=== PATIENT | female | born 1950 | race Caucasian/White ===

== ENCOUNTER 2018-03-24 14:52 | Emergency (ER) | payer SELFPAY ==
[2018-03-24] MEDS ORDERED: ALBUTEROL 3 ML DEYVIAL IH ONE ×3 (15:02→15:53)
[2018-03-24] MEDS ORDERED: IPRATROPIUM/ALBUTEROL 3 ML DEYVIAL IH ONE (15:02)
--- NOTE | 2018-03-24 15:08 | EDPHY ---
H & P Time Seen by Provider: 03/24/18 15:02 HPI/ROS: CHIEF COMPLAINT: Trouble breathing and chest tightness HISTORY OF PRESENT ILLNESS: History of exercise-induced asthma her whole life but worse when she moved to [place] 5 years ago. Started as reflux and then goes up into her chest. This particular episode started about 4 days ago. She says it feels like her asthma and right now feels like there is something sitting on her chest and she has trouble catching her breath. She is here because she is worried that in the past if she lives ago to long and it gets worse she is out for couple of weeks. Not associated with hemoptysis, dry nonproductive cough. A little bit worse with exertion, not positional. REVIEW OF SYSTEMS: Eye: no change in vision ENT: no sore throat Cardiac: HPI Pulmonary: HPI Abdomen: no vomiting, diarrhea, abdominal pain Musculoskeletal: No leg swelling Skin: no rash Neuro: no headache Constitutional: no fever : no urinary symptoms A comprehensive 10 point review of systems is otherwise negative aside from elements mentioned in the history of present illness. PAST MEDICAL HISTORY: Asthma, and reflux. No history of coronary disease or venous thromboembolism. Social history: Not currently smoking. No recent travel or immobilization. General Appearance: Alert and conversant, cooperative. Eyes: No scleral icterus. ENT, Mouth: Normal mucous membranes. Respiratory: Speaks in full sentences, slight end-expiratory wheezes but generally lungs sound quiet. Cardiovascular: Regular rate and rhythm. Gastrointestinal: Abdomen is soft and non tender. Neurological: Alert, face symmetric, normal motor and sensory in extremities. Skin: Warm and dry, no rashes. Musculoskeletal: No peripheral edema. No calf tenderness. Psychiatric: Not agitated. Emergency Department course/MDM: DuoNeb, albuterol neb, EKG, chest x-ray and D-dimer. 1543: d-dimer and troponin negative, chest x-ray negative for pneumothorax or pneumonia. No evidence for CHF. Will treat with nebulizer treatments and steroids for reactive airway disease. 1552: Patient informed of test results, will keep treating for reactive airways disease, at this point I think ACS or venous thromboembolism is unlikely. 1605: Says she feels much better, speaking in full sentences, on exam is moving much more air now. She feels comfortable going home which I think is reasonable. She has a nebulizer at home and medication for it. Primary care referral given. Smoking Status: Former smoker Constitutional: Initial Vital Signs Temperature (C) 36.5 C 03/24/18 14:53 Heart Rate 84 03/24/18 14:53 Respiratory Rate 18 03/24/18 14:53 Blood Pressure 157/76 H 03/24/18 14:53 O2 Sat (%) 95 03/24/18 14:53 O2 Delivery Mode Room Air Allergies/Adverse Reactions: No Known Allergies Allergy (Unverified 03/24/18 14:56) Home Medications: Medication Instructions Recorded Advair Hfa 115-21 Mcg Inhaler 03/24/18 Ipratropium [Atrovent Neb (*)] 0.5 mg IH 03/24/18 predniSONE [prednisone 20mg (RX)] 40 mg PO DAILY 5 Days tab 03/24/18 Medical Decision Making - Diagnostics EKG Interpretation: 12-lead EKG interpreted by me; official reading is in trace master. My interpretation is sinus rhythm rate 63 no ischemic changes. Imaging Results: Imaging Impressions Chest X-Ray 03/24/18 15:17 Impression: Bronchitis. Imaging: I viewed and interpreted images myself Differential Diagnosis: Differential diagnosis considered for shortness of breath including but not limited to pulmonary infectious process, COPD, asthma, pulmonary embolus and congestive heart failure. - Data Points Laboratory Results: Laboratory Results 03/24/18 15:10 03/24/18 15:10 03/24/18 03/24/18 03/24/18 15:15 15:10 15:10 WBC RBC Hgb Hct MCV MCH MCHC RDW Plt Count MPV Neut % (Auto) Lymph % (Auto) [place] % (Auto) Eos % (Auto) Baso % (Auto) Nucleat RBC Rel Count Absolute Neuts (auto) Absolute Lymphs (auto) Absolute Monos (auto) Absolute Eos (auto) Absolute Basos (auto) Absolute Nucleated RBC Immature Gran % Immature Gran # D-Dimer 0.31 ug/mLFEU ug/mLFEU (0.00-0.50) Sodium 134 mEq/L L mEq/L (135-145) Potassium 4.5 mEq/L mEq/L (3.3-5.0) Chloride 103 mEq/L mEq/L (97-110) Carbon Dioxide 24 mEq/l mEq/l (22-31) Anion Gap 7 mEq/L L mEq/L (8-16) BUN 19 mg/dL mg/dL (7-23) Creatinine 0.9 mg/dL mg/dL (0.6-1.0) Estimated GFR > 60 Glucose 90 mg/dL mg/dL (70-100) Calcium 9.7 mg/dL mg/dL (8.5-10.4) POC Troponin I 0.00 ng/mL ng/mL (0.00-0.08) 03/24/18 15:10 WBC 8.34 10^3/uL 10^3/uL (3.80-9.50) RBC 4.92 10^6/uL 10^6/uL (4.18-5.33) Hgb 15.4 g/dL g/dL (12.6-16.3) Hct 46.0 % % (38.0-47.0) MCV 93.5 fL fL (81.5-99.8) MCH 31.3 pg pg (27.9-34.1) MCHC 33.5 g/dL g/dL (32.4-36.7) RDW 13.2 % % (11.5-15.2) Plt Count 251 10^3/uL 10^3/uL (150-400) MPV 9.8 fL fL (8.7-11.7) Neut % (Auto) 59.1 % % (39.3-74.2) Lymph % (Auto) 27.3 % % (15.0-45.0) [place] % (Auto) 9.8 % % (4.5-13.0) Eos % (Auto) 2.4 % % (0.6-7.6) Baso % (Auto) 1.3 % % (0.3-1.7) Nucleat RBC Rel Count 0.0 % % (0.0-0.2) Absolute Neuts (auto) 4.92 10^3/uL 10^3/uL (1.70-6.50) Absolute Lymphs (auto) 2.28 10^3/uL 10^3/uL (1.00-3.00) Absolute Monos (auto) 0.82 10^3/uL H 10^3/uL (0.30-0.80) Absolute Eos (auto) 0.20 10^3/uL 10^3/uL (0.03-0.40) Absolute Basos (auto) 0.11 10^3/uL H 10^3/uL (0.02-0.10) Absolute Nucleated RBC 0.00 10^3/uL 10^3/uL (0-0.01) Immature Gran % 0.1 % % (0.0-1.1) Immature Gran # 0.01 10^3/uL 10^3/uL (0.00-0.10) D-Dimer Sodium Potassium Chloride Carbon Dioxide Anion Gap BUN Creatinine Estimated GFR Glucose Calcium POC Troponin I Medications Given: Discontinued Medications Albuterol (Proventil Neb) 3 ml IH EDNOW ONE Stop: 03/24/18 15:03 Last Admin: 03/24/18 15:22 Dose: 3 ml Albuterol (Proventil Neb) 3 ml IH EDNOW ONE Stop: 03/24/18 15:18 Last Admin: 03/24/18 15:22 Dose: 3 ml Albuterol (Proventil Neb) 3 ml IH EDNOW ONE Stop: 03/24/18 15:54 Last Admin: 03/24/18 15:57 Dose: 3 ml Albuterol/Ipratropium (Duoneb) 3 ml IH EDNOW ONE Stop: 03/24/18 15:03 Last Admin: 03/24/18 15:07 Dose: 3 ml Methylprednisolone Sodium Succinate (Solu-Medrol) 125 mg IVP EDNOW ONE Stop: 03/24/18 15:18 Last Admin: 03/24/18 15:22 Dose: 125 mg Point of Care Test Results: Chemistry 03/24/18 15:15 POC Troponin I 0.00 ng/mL ng/mL (0.00-0.08) Departure - Departure Disposition: Home, Routine, Self-Care Clinical Impression: Exacerbation of asthma Condition: Good Instructions: Asthma (ED) Referrals: Josee Cooper MD [Medical Doctor] - As per Instructions (primary care referral ; applications systems engineer for ED) Prescriptions: predniSONE [prednisone 20mg (RX)] 40 mg PO DAILY 5 Days tab
--- NOTE | 2018-03-24 15:13 | CPEKG ---
Heart Rate: 63 RR Interval: 952 P-R Interval: 160 QRSD Interval: 98 QT Interval: 408 QTC Interval: 418 P [place]: 38 QRS [place]: -7 T Wave [place]: 52 EKG Severity - NORMAL ECG - EKG Impression: SINUS RHYTHM Electronically Signed By: Fred Christensen 24-Mar-2018 15:25:13
[2018-03-24] MEDS ORDERED: methylPREDNISolone SOD SUCC 125 MG/2 ML VIAL IVP ONE (15:17)
[2018-03-24 15:29] LABS: PLATELET COUNT 251 10^3/uL (150-400)
[2018-03-24 16:02] VITALS: BP 130/78
== END 2018-03-24 16:12 | disposition home or self-care (01) ==
DX: J45.901 Unspecified asthma with (acute) exacerbation (principal); Z87.891 Personal history of nicotine dependence
CPT/HCPCS: 84484-PO; 96374; J2930; J7613

== ENCOUNTER 2018-10-23 20:10 | Emergency (ER) | payer OTHER ==
[2018-10-23] MEDS ORDERED: IPRATROPIUM/ALBUTEROL 3 ML DEYVIAL ONE (20:20)
[2018-10-23] MEDS ORDERED: methylPREDNISolone SOD SUCC 125 MG/2 ML VIAL IVP ONE (20:23)
[2018-10-23] MEDS ORDERED: AZITHROMYCIN 250 MG TAB PO ONE (20:23)
--- NOTE | 2018-10-23 20:31 | EDPHY ---
H & P Stated Complaint: resp illness worsening Time Seen by Provider: 10/23/18 20:19 HPI/ROS: CHIEF COMPLAINT: Shortness of breath HISTORY OF PRESENT ILLNESS: Patient is a 68-year-old female with a history of asthma and COPD who comes to the emergency department complaining of shortness of breath. She states that she got a cold on Tuesday that she thinks is a sinus infection. Tuesday she began using her albuterol nebulizer every 3-4 hours and has been using it for the last 24 hr. She states that she has had a fever of 100.5 at home. No chest pain. She has not been coughing. She has had a mild sore throat. She did get a flu vaccine this year. Severity: Moderate Modifying factors: The improvement with albuterol REVIEW OF SYSTEMS: Constitutional: denies: chills, fever, recent illness, recent injury EENTM: denies: blurred vision, double vision, nose congestion Respiratory: See HPI Cardiac: denies: chest pain, irregular heart rate, lightheadedness, palpitations Gastrointestinal/Abdominal: denies: abdominal pain, diarrhea, nausea, vomiting, blood streaked stools Genitourinary: denies: dysuria, frequency, hematuria, pain Musculoskeletal: denies: joint pain, muscle pain Skin: denies: lesions, rash, jaundice, bruising Neurological: denies: headache, numbness, paresthesia, tingling, dizziness, weakness Hematologic/Lymphatic: denies: blood clots, easy bleeding, easy bruising Immunologic/allergic: denies: HIV/AIDS, transplant 10 systems reviewed and negative except as noted EXAM: GENERAL: Well-appearing, well-nourished and in no acute distress. HEAD: Atraumatic, normocephalic. EYES: Pupils equal round and reactive to light, extraocular movements intact, sclera anicteric, conjunctiva are normal. ENT: TMs normal, nares patent, oropharynx clear without exudates. Moist mucous membranes. NECK: Normal range of motion, supple without lymphadenopathy or JVD. LUNGS: Breath sounds clear, no audible wheezing or rhonchi HEART: Regular rate and rhythm without murmurs, rubs or gallops. ABDOMEN: Soft, nontender, normoactive bowel sounds. No guarding, no rebound. No masses appreciated. BACK: No CVA tenderness, no spinal tenderness, step-offs or deformities EXTREMITIES: Normal range of motion, no pitting or edema. No clubbing or cyanosis. NEUROLOGICAL: Cranial nerves II through XII grossly intact. Normal speech, normal gait. 5/5 strength, normal movement in all extremities, normal sensation , normal reflexes PSYCH: Normal mood, normal affect. SKIN: Warm, dry, normal turgor, no visible rashes or lesions. Source: Patient Exam Limitations: No limitations - Personal History Current Tetanus/Diphtheria Vaccine: Yes Current Tetanus Diphtheria and Acellular Pertussis (TDAP): Yes - Medical/Surgical History Hx Asthma: Yes Hx Chronic Respiratory Disease: No Hx Diabetes: No Hx Cardiac Disease: No Hx Renal Disease: No Hx Cirrhosis: No Hx Alcoholism: No Hx HIV/AIDS: No Hx Splenectomy or Spleen Trauma: No Other PMH: GERD - Family History Significant Family History: No pertinent family hx - Social History Smoking Status: Former smoker Alcohol Use: None Constitutional: Initial Vital Signs Temperature (C) 37.1 C 10/23/18 20:15 Heart Rate 92 10/23/18 20:15 Respiratory Rate 20 10/23/18 20:15 Blood Pressure 134/80 H 10/23/18 20:15 O2 Sat (%) 84 L 10/23/18 20:15 O2 Delivery Mode Room Air Allergies/Adverse Reactions: No Known Allergies Allergy (Unverified 03/24/18 14:56) Home Medications: Medication Instructions Recorded Advair Hfa 115-21 Mcg Inhaler 03/24/18 Ipratropium [Atrovent Neb (*)] 0.5 mg IH 03/24/18 predniSONE [prednisone 20mg (RX)] 40 mg PO DAILY 5 Days tab 03/24/18 Citalopram 10/23/18 Lamictal 10/23/18 predniSONE 60 mg PO DAILY #15 tab 10/23/18 traZODONE 100MG (*) 10/23/18 Medical Decision Making - Diagnostics Imaging: Discussed imaging studies w/ stamping die maker bench Radiologist ED Course/Re-evaluation: Patient's x-rays reassuring. She is saturating 95% on room air. She states that she feels much better after receiving IV Solu-Medrol. I suspect that there was large anxiety component. Will continue to observe. Awaiting flu swab results. 9:50 p.m. patient's flu sub still not back. She does not wish to wait. She is eager to go home. Her saturations have been 95% on room air. She did not receive any albuterol here. She feels much better after Solu-Medrol. Will place her on a prednisone pack and have her follow up with her primary. Discussed indications for returning. 10:00 p.m. Patient's flu swab is back. We discussed this with her. She is out of the window for treatment. Is Differential Diagnosis: Partial list of the Differential diagnosis considered include but were not limited to; asthma exacerbation, bronchitis, pneumonia, anxiety and although unlikely based on the history and physical exam, I also considered allergic reaction,, PE, acute coronary disease. I discussed these differential diagnoses and the plan with the patient as well as the usual and expected course. The patient understands that the diagnosis is provisional and that in medicine we are not always correct and that further workup is often warranted. Usual and customary warnings were given. All of the patient's questions were answered. The patient was instructed to return to the emergency department should the symptoms at all worsen or return, otherwise to followup with the physician as we discussed. - Data Points Laboratory Results: Laboratory Results 10/23/18 20:25 10/23/18 20:25 Medications Given: Discontinued Medications Azithromycin (Zithromax) 500 mg PO EDNOW ONE PRN Reason: Protocol Stop: 10/23/18 20:24 Last Admin: 10/23/18 20:44 Dose: 500 mg Methylprednisolone Sodium Succinate (Solu-Medrol) 125 mg IVP EDNOW ONE Stop: 10/23/18 20:24 Last Admin: 10/23/18 20:44 Dose: 125 mg Departure - Departure Disposition: Home, Routine, Self-Care Clinical Impression: Influenza A Exacerbation of asthma Qualifiers: Asthma severity: moderate Asthma persistence: unspecified Qualified Code(s): J45.901 - Unspecified asthma with (acute) exacerbation Condition: Fair Instructions: Asthma (ED), Upper Respiratory Infection (ED) Referrals: RADHA CHACKO [Other] - As per Instructions Prescriptions: predniSONE 60 mg PO DAILY #15 tab
[2018-10-23 20:47] LABS: PLATELET COUNT 230 10^3/uL (150-400)
[2018-10-23 20:55] LABS: INR 0.93 (0.83-1.16); PROTIME(PATIENT) 12.7 SEC (12.0-15.0)
[2018-10-23 22:08] VITALS: BP 160/99
== END 2018-10-23 22:08 | disposition home or self-care (01) ==
DX: J10.1 Influenza due to other identified influenza virus with other respiratory manifestations (principal); J45.901 Unspecified asthma with (acute) exacerbation; K21.9 Gastro-esophageal reflux disease without esophagitis; J44.9 Chronic obstructive pulmonary disease, unspecified; Z79.51 Long term (current) use of inhaled steroids; Z87.891 Personal history of nicotine dependence
CPT/HCPCS: 71046; 96374; 99284; J2930